=== PATIENT | male | born 1975 | race Caucasian/White ===

== ENCOUNTER 2017-06-12 22:53 | Emergency (ER) | payer OTHER ==
[~2017-06-12] VITALS: Ht 172.7 cm; Wt 102.1 kg
[~2017-06-12 22:53] MED LIST: ACET500; ALBU90OI INH; AMOCLA500 PO; AMOX500 PO; CEPH500 PO; CYCL10 PO; DOXY100 PO; HYDACE5 PO; IBUP800; IBUP800 PO; LORA2 PO; LOSARTAN POTAS100 MG PO; OXYACE5T PO; PROM25 PO; Prednisone20 MG PO; RXHYDACE PO; Zithromax250 MG PO
[2017-06-13 01:17] LABS: BASOPHILS ABSOLUTE AUTO 0.07 K/mm3 (0.00-0.23); BASOPHILS PERCENT AUTO 1 % (0-2); EOSINOPHILS PERCENT AUTO 1 % (0-6); Hemoglobin 14.2 g/dL (13.5-17.5); IMMATURE GRAN ABSOLUTE AUTO 0.03 K/mm3 (0.00-0.10); IMMATURE GRAN PERCENT AUTO 0 % (0-1); LYMPHOCYTES ABSOLUTE AUTO 2.38 K/mm3 (0.84-5.20); LYMPHOCYTES PERCENT AUTO 30 % (21-46); MONOCYTES ABSOLUTE AUTO 0.59 K/mm3 (0.16-1.47); MONOCYTES PERCENT AUTO 8 % (4-13); Mean Corpuscular HGB 32.4 pg (26.0-34.0); Mean Corpuscular HGB Conc 33.8 g/dL (31.5-36.5); Mean Corpuscular Volume 96 fL (80-100); Mean Platelet Volume 9.7 fL (9.1-12.4); NEUTROPHILS ABSOLUTE AUTO 4.66 K/mm3 (1.96-9.15); NEUTROPHILS PERCENT AUTO 60 % (41-73); Platelet Count 303 K/mm3 (150-400); RDW Coefficient Variation 11.6 % (11.7-14.2); RDW Standard Deviation 41.1 fL (35.1-46.3); Red Blood Cell Count 4.38 M/mm3 (4.30-5.90); White Blood Cell Count 7.83 K/mm3 (4.00-11.30)
[2017-06-13 01:35] LABS: Alanine Aminotransfer (ALT/SGP 29 U/L (12-78); Albumin, Blood 3.9 g/dL (3.4-5.0); Albumin/Globulin Ratio 1.1 (0.8-1.8); Alk Phos 87 U/L (50-136); Anion Gap 2 mmol/L (6-16); Aspartate Aminotrans (AST/SGOT 36 U/L (12-37); Bilirubin, Total 1.3 mg/dL (0.1-1.0); Blood Urea Nitrogen 11 mg/dL (8-24); Bun/Creatinine Ratio 15.5 (12.0-20.0); CO2, Blood 31 mmol/L (21-32); Calcium, Blood 8.6 mg/dL (8.5-10.1); Chloride, Blood 108 mmol/L (98-108); Creatinine, Blood 0.71 mg/dL (0.60-1.20); Globulin, Blood 3.5 g/dL (2.2-4.0); Glomerular Filtration Rate >60 (60-); Glucose, Blood 79 mg/dL (70-99); Potassium, Blood 3.8 mmol/L (3.5-5.5); Sodium, Blood 141 mmol/L (136-145); Total Protein, Blood 7.4 g/dL (6.4-8.2)
[2017-06-13] MEDS ORDERED: Lamisil250 MG PO (02:47)
[2017-06-13] MEDS ORDERED: Ultram50 MG PO (02:55)
== END 2017-06-13 03:04 | disposition home or self-care (01) ==
LOC: ER 22:53
PROVIDERS: Emergency Medicine
DX: K64.8 Other hemorrhoids (principal); R10.30 Lower abdominal pain, unspecified; I10 Essential (primary) hypertension; F17.210 Nicotine dependence, cigarettes, uncomplicated
CPT/HCPCS: 36415; 74176; 80053; 83690; 85025; 96361; 96374; 96375; 96376; 99284; J2405; J3010; J7030

== ENCOUNTER 2018-04-27 19:06 | Emergency (ER) | payer BC, OTHER ==
[~2018-04-27] VITALS: Ht 172.7 cm; Wt 102.1 kg
[~2018-04-27 19:06] MED LIST changes: +Lamisil250 MG PO; +Ultram50 MG PO
[2018-04-27] MEDS ORDERED: LOSA50 PO (19:37)
[2018-04-27] MEDS ORDERED: IBUP800 PO (21:23)
[2018-04-27] MEDS ORDERED: Percocet 5-3251 EACH PO (21:23)
== END 2018-04-27 21:52 | disposition home or self-care (01) ==
LOC: ER 19:06
DX: S52.021A Displaced fracture of olecranon process without intraarticular extension of right ulna, initial encounter for closed fracture (principal); S83.92XA Sprain of unspecified site of left knee, initial encounter; I10 Essential (primary) hypertension; W01.0XXA Fall on same level from slipping, tripping and stumbling without subsequent striking against object, initial encounter
CPT/HCPCS: 73080; 73564; A9270-GY

== ENCOUNTER 2018-08-16 17:55 | Emergency (ER) | payer BC, OTHER ==
[~2018-08-16] VITALS: Ht 172.7 cm; Wt 95.2 kg
[~2018-08-16 17:55] MED LIST changes: +LOSA50 PO; +Percocet 5-3251 EACH PO
[2018-08-16] MEDS ORDERED: PRED20 PO (18:43)
[2018-08-16] MEDS ORDERED: Robaxin-750750 MG PO (18:43)
[2018-08-16] MEDS ORDERED: HYDR1TAB94 PO ×2 (18:45→18:48)
== END 2018-08-16 19:00 | disposition home or self-care (01) ==
LOC: ER 17:55
DX: M54.6 Pain in thoracic spine (principal); M54.5 Low back pain; M54.2 Cervicalgia; Z79.899 Other long term (current) drug therapy; I10 Essential (primary) hypertension; F17.210 Nicotine dependence, cigarettes, uncomplicated
CPT/HCPCS: 96372; 99283; A9270; J1885; J7512

== ENCOUNTER 2019-05-28 16:34 | Emergency (ER) | payer BC, OTHER ==
[~2019-05-28] VITALS: Ht 172.7 cm; Wt 104.3 kg
[~2019-05-28 16:34] MED LIST changes: +HYDR1TAB94 PO; +PRED20 PO; +Robaxin-750750 MG PO
[2019-05-28] MEDS ORDERED: IBUP800 PO (21:30)
[2019-05-28] MEDS ORDERED: Norco 5-325 Ta1 EACH PO (21:30)
== END 2019-05-28 21:40 | disposition home or self-care (01) ==
LOC: ER 16:34
DX: M75.42 Impingement syndrome of left shoulder (principal); I10 Essential (primary) hypertension; F17.210 Nicotine dependence, cigarettes, uncomplicated
CPT/HCPCS: 20611; 73030; 99283-25; A9270-GY; J3301

== ENCOUNTER 2020-01-04 18:02 | Emergency (ER) | payer BC, OTHER ==
[~2020-01-04] VITALS: Ht 172.7 cm; Wt 102.1 kg
[~2020-01-04 18:02] MED LIST changes: +AMLO10 PO; +BUPR150ER PO; +Mobic15 MG PO; +Norco 5-325 Ta1 EACH PO; +PANT20 PO
[2020-01-04 18:57] LABS: BASOPHILS ABSOLUTE AUTO 0.08 K/mm3 (0.00-0.23); BASOPHILS PERCENT AUTO 1 % (0-2); EOSINOPHILS ABSOLUTE AUTO 0.12 K/mm3 (0.00-0.68); EOSINOPHILS PERCENT AUTO 1 % (0-6); Hematocrit 43.9 % (37.0-53.0); Hemoglobin 14.7 g/dL (13.5-17.5); IMMATURE GRAN ABSOLUTE AUTO 0.02 K/mm3 (0.00-0.10); IMMATURE GRAN PERCENT AUTO 0 % (0-1); LYMPHOCYTES ABSOLUTE AUTO 2.21 K/mm3 (0.84-5.20); LYMPHOCYTES PERCENT AUTO 25 % (21-46); MONOCYTES ABSOLUTE AUTO 0.66 K/mm3 (0.16-1.47); MONOCYTES PERCENT AUTO 8 % (4-13); Mean Corpuscular HGB 31.8 pg (26.0-34.0); Mean Corpuscular HGB Conc 33.5 g/dL (31.5-36.5); Mean Corpuscular Volume 95 fL (80-100); Mean Platelet Volume 9.9 fL (9.1-12.4); NEUTROPHILS PERCENT AUTO 65 % (41-73); Platelet Count 338 K/mm3 (150-400); RDW Coefficient Variation 11.6 % (11.7-14.2); RDW Standard Deviation 40.5 fL (35.1-46.3); Red Blood Cell Count 4.62 M/mm3 (4.30-5.90); White Blood Cell Count 8.79 K/mm3 (4.00-11.30)
[2020-01-04 19:35] LABS: Alanine Aminotransfer (ALT/SGP 30 U/L (12-78); Albumin, Blood 4.1 g/dL (3.4-5.0); Albumin/Globulin Ratio 1.1 (0.8-1.8); Alk Phos 87 U/L (50-136); Anion Gap 5 mmol/L (6-16); Aspartate Aminotrans (AST/SGOT 25 U/L (12-37); Bilirubin, Total 0.9 mg/dL (0.1-1.0); Blood Urea Nitrogen 12 mg/dL (8-24); Bun/Creatinine Ratio 15.4 (12.0-20.0); CO2, Blood 30 mmol/L (21-32); Calcium, Blood 9.2 mg/dL (8.5-10.1); Chloride, Blood 105 mmol/L (98-108); Creatinine, Blood 0.78 mg/dL (0.60-1.20); Globulin, Blood 3.6 g/dL (2.2-4.0); Glomerular Filtration Rate >60 (60-); Glucose, Blood 90 mg/dL (70-99); Potassium, Blood 3.8 mmol/L (3.5-5.5); Sodium, Blood 140 mmol/L (136-145); Total Protein, Blood 7.7 g/dL (6.4-8.2); Troponin I <0.015 ng/mL (0.000-0.040)
[2020-01-04] MEDS ORDERED: ALBU90OI INH (20:16)
[2020-01-04] MEDS ORDERED: IBUP600 PO (20:16)
[2020-01-04] MEDS ORDERED: BENZ100A PO (20:16)
[2020-01-04] MEDS ORDERED: CLONIDINE (20:20)
[2020-01-04] MEDS ORDERED: HCTZ (20:21)
== END 2020-01-04 20:38 | disposition home or self-care (01) ==
LOC: ER 18:02
PROVIDERS: Emergency Medicine
DX: R07.89 Other chest pain (principal); J06.9 Acute upper respiratory infection, unspecified; I10 Essential (primary) hypertension; F17.210 Nicotine dependence, cigarettes, uncomplicated; Z79.899 Other long term (current) drug therapy
CPT/HCPCS: 36415; 71045; 80053; 84484; 85025; 93005; 93010; 99284-25

== ENCOUNTER 2020-08-07 21:12 | Emergency (ER) | payer BC, OTHER ==
[~2020-08-07] VITALS: Ht 172.7 cm; Wt 102.1 kg
[~2020-08-07 21:12] MED LIST changes: +BENZ100A PO; +CLONIDINE; +HCTZ; +IBUP600 PO
[2020-08-07] MEDS ORDERED: CLON.1 PO (22:25)
[2020-08-07] MEDS ORDERED: Cetirizine HCl10 MG PO (22:25)
[2020-08-07] MEDS ORDERED: HYDCHL25 PO (22:26)
[2020-08-07] MEDS ORDERED: TRAM50 PO (22:26)
[2020-08-07] MEDS ORDERED: TIZA4 PO (22:26)
[2020-08-07] MEDS ORDERED: PREGABALIN50 MG PO (22:27)
== END 2020-08-08 00:42 | disposition home or self-care (01) ==
LOC: ER 21:12
DX: S86.811A Strain of other muscle(s) and tendon(s) at lower leg level, right leg, initial encounter (principal); I10 Essential (primary) hypertension; Z79.899 Other long term (current) drug therapy; F17.210 Nicotine dependence, cigarettes, uncomplicated; X50.1XXA Overexertion from prolonged static or awkward postures, initial encounter
CPT/HCPCS: 29515; 76882; 99284-25; A9270

== ENCOUNTER → 2021-11-28 | Outpatient (CLI) | payer BC, OTHER ==
[~2021-11-28] MED LIST changes: +CLON.1 PO; +Cetirizine HCl10 MG PO; +HYDCHL25 PO; +PREGABALIN50 MG PO; +TIZA4 PO; +TRAM50 PO
[2021-11-28 17:15] LABS: BASOPHILS ABSOLUTE AUTO 0.09 K/mm3 (0.00-0.23); BASOPHILS PERCENT AUTO 1 % (0-2); EOSINOPHILS PERCENT AUTO 3 % (0-6); Hematocrit 44.1 % (37.0-53.0); Hemoglobin 15.2 g/dL (13.5-17.5); IMMATURE GRAN ABSOLUTE AUTO 0.03 K/mm3 (0.00-0.10); IMMATURE GRAN PERCENT AUTO 0 % (0-1); LYMPHOCYTES ABSOLUTE AUTO 2.05 K/mm3 (0.84-5.20); LYMPHOCYTES PERCENT AUTO 19 % (21-46); MONOCYTES ABSOLUTE AUTO 0.84 K/mm3 (0.16-1.47); MONOCYTES PERCENT AUTO 8 % (4-13); Mean Corpuscular HGB 32.8 pg (26.0-34.0); Mean Corpuscular HGB Conc 34.5 g/dL (31.5-36.5); Mean Corpuscular Volume 95 fL (80-100); Mean Platelet Volume 9.9 fL (9.1-12.4); NEUTROPHILS ABSOLUTE AUTO 7.53 K/mm3 (1.96-9.15); NEUTROPHILS PERCENT AUTO 70 % (41-73); Platelet Count 369 K/mm3 (150-400); RDW Coefficient Variation 11.7 % (11.7-14.2); RDW Standard Deviation 40.8 fL (35.1-46.3); Red Blood Cell Count 4.64 M/mm3 (4.30-5.90); White Blood Cell Count 10.84 K/mm3 (4.00-11.30)
[2021-11-28 17:26] LABS: Albumin, Blood 4.3 g/dL (3.4-5.0); Albumin/Globulin Ratio 1.3 (0.8-1.8); Bilirubin, Total 1.3 mg/dL (0.1-1.0); Bun/Creatinine Ratio 17.2 (12.0-20.0); Calcium, Blood 8.8 mg/dL (8.5-10.1); Creatinine, Blood 0.87 mg/dL (0.60-1.20); Globulin, Blood 3.3 g/dL (2.2-4.0); Potassium, Blood 4.4 mmol/L (3.5-5.5); Total Protein, Blood 7.6 g/dL (6.4-8.2)
== END ==
LOC: LAB 17:10 → LAB SHORT 17:10
PROVIDERS: Physician Assistant
DX: R07.9 Chest pain, unspecified (principal)
CPT/HCPCS: 80053; 84484; 85025

== ENCOUNTER → 2022-11-29 | Outpatient (CLI) | payer BC, OTHER | LOC: LAB SHORT 16:53 → LAB 16:53 | PROVIDERS: Nurse Practitioner Family | DX: G89.4 Chronic pain syndrome (principal) | CPT/HCPCS: G0480 ==

== ENCOUNTER → 2022-12-28 | Outpatient (CLI) | payer BC, OTHER | END | disposition home or self-care (01) | LOC: LAB 11:43 → LAB SHORT 11:43 | PROVIDERS: Nurse Practitioner Family | DX: G89.4 Chronic pain syndrome (principal) | CPT/HCPCS: G0480 ==

== ENCOUNTER 2023-08-12 13:31 | Emergency (ER) | payer BC ==
[~2023-08-12] VITALS: Ht 172.7 cm; Wt 104.3 kg
[2023-08-12] MEDS ORDERED: Ondansetron HCl 2 MG / ML 2ML Vial IV ONE (13:40)
[2023-08-12] MEDS ORDERED: NS 1,000 ML IV SCH (13:40)
[2023-08-12] MEDS ORDERED: HYDROmorphone HCl/Pf 1MG SYR IV ONE (13:40)
[2023-08-12 14:25] LABS: BASOPHILS ABSOLUTE AUTO 0.07 K/mm3 (0.00-0.23); BASOPHILS PERCENT AUTO 1 % (0-2); EOSINOPHILS ABSOLUTE AUTO 0.08 K/mm3 (0.00-0.68); EOSINOPHILS PERCENT AUTO 1 % (0-6); Hematocrit 41.9 % (37.0-53.0); Hemoglobin 14.4 g/dL (13.5-17.5); IMMATURE GRAN ABSOLUTE AUTO 0.02 K/mm3 (0.00-0.10); IMMATURE GRAN PERCENT AUTO 0 % (0-1); LYMPHOCYTES PERCENT AUTO 21 % (21-46); MONOCYTES ABSOLUTE AUTO 0.82 K/mm3 (0.16-1.47); MONOCYTES PERCENT AUTO 10 % (4-13); Mean Corpuscular HGB 32.8 pg (26.0-34.0); Mean Corpuscular HGB Conc 34.4 g/dL (31.5-36.5); Mean Corpuscular Volume 95 fL (80-100); NEUTROPHILS ABSOLUTE AUTO 5.45 K/mm3 (1.96-9.15); NEUTROPHILS PERCENT AUTO 67 % (41-73); Platelet Count 284 K/mm3 (150-400); RDW Coefficient Variation 11.5 % (11.7-14.2); Red Blood Cell Count 4.39 M/mm3 (4.30-5.90); White Blood Cell Count 8.14 K/mm3 (4.00-11.30)
[2023-08-12 14:43] LABS: Albumin, Blood 3.8 g/dL (3.4-5.0); Albumin/Globulin Ratio 1.2 (0.8-1.8); Bun/Creatinine Ratio 16.6 (12.0-20.0); Calcium, Blood 8.6 mg/dL (8.5-10.1); Creatinine, Blood 0.72 mg/dL (0.60-1.20); Globulin, Blood 3.2 g/dL (2.2-4.0); Potassium, Blood 4.1 mmol/L (3.5-5.5)
[2023-08-12] MEDS ORDERED: Ketorolac Tromethamine 15mg Vial IV ONE (14:45)
[2023-08-12] MEDS ORDERED: Acetaminophen 500 MG Tab PO ONE (14:55)
[2023-08-12 15:16] LABS: Source, Urine Clean Catch
[2023-08-12 15:24] LABS: Appearance, Urine Clear (Clear); Bilirubin, Urine Neg (Neg); Blood, Urine 2+ (Neg); Color, Urine Yellow (P-Yellow); Glucose Qualitative, Urine Neg (Neg); Ketones, Urine Neg (Neg); Leukocyte Esterase, Urine Neg (Neg); Nitrite, Urine Neg (Neg); Protein, Urine Neg (Neg); Urobilinogen, Urine NORM (Normal)
[2023-08-12 15:51] LABS: Bacteria Mod /hpf; Mucus Light (0-Heavy); Red Blood Cells, Urine 0-2 /hpf (0-2); Squamous Epithelial Cells Rare /hpf (Few); White Blood Cells, Urine 0-2 /hpf (0-5)
[2023-08-12] MEDS ORDERED: Lidocaine 2% Viscous Soln 15 ML UDC PO ONE (16:35)
[2023-08-12] MEDS ORDERED: Mag Hydrox/AL Hydrox/Simeth 30 ML UDC PO ONE (16:35)
[2023-08-12] MEDS ORDERED: Atropine/Scopalam/Hyoscam/PB 5 ML UDC PO ONE (16:35)
[2023-08-12 17:45] VITALS: BP 139/92
== END 2023-08-12 18:07 | disposition home or self-care (01) ==
LOC: ER 13:31
PROVIDERS: Physician Assistant; Student in an Organized Health Care Education/Training Program
DX: R10.11 Right upper quadrant pain (principal); I10 Essential (primary) hypertension; F17.210 Nicotine dependence, cigarettes, uncomplicated; Z79.899 Other long term (current) drug therapy
CPT/HCPCS: 74177; 76705; 80053; 81001; 82272; 83690; 85025; 87086; 93005; 93010; 96361; 96374-59; 96375; 99284-25; A9270; J1170; J1885; J2405; J7030; Q9967

== ENCOUNTER → 2024-04-02 | Outpatient (CLI) | payer BC ==
[2024-04-03 12:00] LABS: Stool Occult Blood Guaiac 1 Neg (Neg)
== END ==
LOC: LAB 16:25 → LAB SHORT 16:25
PROVIDERS: Nurse Practitioner Family
DX: K62.5 Hemorrhage of anus and rectum (principal)
CPT/HCPCS: 82272

== ENCOUNTER → 2024-08-28 | Outpatient (CLI) | payer BC ==
[2024-08-28 17:31] LABS: BASOPHILS ABSOLUTE AUTO 0.07 K/mm3 (0.00-0.23); BASOPHILS PERCENT AUTO 1 % (0-2); EOSINOPHILS ABSOLUTE AUTO 0.18 K/mm3 (0.00-0.68); EOSINOPHILS PERCENT AUTO 2 % (0-6); Hematocrit 40.9 % (37.0-53.0); Hemoglobin 13.6 g/dL (13.5-17.5); IMMATURE GRAN ABSOLUTE AUTO 0.02 K/mm3 (0.00-0.10); IMMATURE GRAN PERCENT AUTO 0 % (0-1); LYMPHOCYTES ABSOLUTE AUTO 2.09 K/mm3 (0.84-5.20); LYMPHOCYTES PERCENT AUTO 28 % (21-46); MONOCYTES ABSOLUTE AUTO 0.55 K/mm3 (0.16-1.47); MONOCYTES PERCENT AUTO 7 % (4-13); Mean Corpuscular HGB Conc 33.3 g/dL (31.5-36.5); Mean Corpuscular Volume 97 fL (80-100); NEUTROPHILS ABSOLUTE AUTO 4.63 K/mm3 (1.96-9.15); NEUTROPHILS PERCENT AUTO 61 % (41-73); NRBC ABSOLUTE 0.00 K/mm3 (0.00-0.02); NRBC Auto 0.0 /100 WBC (0.0-0.2); Platelet Count 334 K/mm3 (150-400); RDW Coefficient Variation 11.8 % (11.7-14.2); RDW Standard Deviation 41.8 fL (35.1-46.3)
[2024-08-28 18:09] LABS: Alanine Aminotransfer (ALT/SGP 32 U/L (12-78); Albumin, Blood 3.9 g/dL (3.4-5.0); Albumin/Globulin Ratio 1.2 (0.8-1.8); Anion Gap 11 mmol/L (3-11); Aspartate Aminotrans (AST/SGOT 20 U/L (12-37); Bilirubin, Total 0.9 mg/dL (0.1-1.0); Blood Urea Nitrogen 14 mg/dL (8-24); CHOL/HDL RATIO 3.0; CO2, Blood 25 mmol/L (21-32); Calcium, Blood 8.8 mg/dL (8.5-10.1); Chloride, Blood 105 mmol/L (98-108); Cholesterol 142 mg/dL (50-200); Creatinine, Blood 0.70 mg/dL (0.60-1.20); Globulin, Blood 3.2 g/dL (2.2-4.0); Glucose, Blood 122 mg/dL (70-99); HDL Cholesterol 48 mg/dL (>39); LDL/HDL RATIO 1.8; Low Density Lipoprotein Chol 85 mg/dL (0-110); Potassium, Blood 3.9 mmol/L (3.5-5.5); Sodium, Blood 137 mmol/L (136-145); Thyroid Stimulating Hormone 1.320 uIU/mL (0.360-4.800); Total Protein, Blood 7.1 g/dL (6.4-8.2); Triglycerides 44 mg/dL (30-160); Very Low Density Lipoprot Chol 8 mg/dL (6-32)
[2024-09-05 04:31] LABS: TESTOSTERONE, FREE BY DIALYSIS 69.8 pg/mL (47.0-244.0); TESTOSTERONE, TOTAL MASS SPEC 672.4 ng/dL (300.0-890.0)
== END ==
LOC: LAB 15:31 → LAB SHORT 15:31
PROVIDERS: Nurse Practitioner Family
DX: Z13.6 Encounter for screening for cardiovascular disorders (principal); R53.81 Other malaise
CPT/HCPCS: 80053; 80061; 84402; 84403; 84443; 85025

== ENCOUNTER 2025-01-23 21:30 | Emergency (ER) | payer BC, OTHER ==
[~2025-01-23] VITALS: Ht 172.7 cm; Wt 97.5 kg
[2025-01-23 21:51] VITALS: BP 155/101
[2025-01-24] MEDS ORDERED: Voltaren100 GM TOP (00:25)
[2025-01-24] MEDS ORDERED: TIZA4 PO (00:25)
== END 2025-01-24 00:39 | disposition home or self-care (01) ==
LOC: ER 21:30
DX: M25.511 Pain in right shoulder (principal); Z79.2 Long term (current) use of antibiotics; Z79.899 Other long term (current) drug therapy; F17.210 Nicotine dependence, cigarettes, uncomplicated; Z59.89 Other problems related to housing and economic circumstances
CPT/HCPCS: 73030; 99283-25